=== PATIENT | female | born 1985 | race Caucasian/White ===

== ENCOUNTER 2018-09-15 06:30 | Day surgery (SDC) | payer OTHER ==
--- NOTE | 2018-09-13 17:22 | PDGENHP ---
History and Physical - Chief Complaint Missed AB, 6w3d by US - History of Present Illness Elsa is a 33 yo now who I met with in clinic on 09/07/18 at which time we unfortunately diagnosed missed AB. She was 9w2d by dates at that time, but US measurements show the fetus stopped growing at 6w3d. At that time she was not having any spotting or cramping at all. 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 At the time of her PE she was also found to have small VSD. She had started the Lovenox 60mg daily at office visit one week prior (08/29/18) at which time US had showed viable but low FHR at 84bpm - and plan was made for repeat US in 1 week. That first US did also have an abnormally enlarged yolk sac and the patient was counseled that this was all concerning for impending miscarriage. She has a h/o one TAB in 2001, then two first trimester SAB's in 2012 and 2014. In the office we discussed options, she preferred misoprostol and I Rx'd 800mcg to be taken buccally, with one refill such that she could repeat that dose after 24 hrs if the first dose had no effect. Indeed she took both the first and second doses of miso with really no cramping or bleeding. Called back to discuss next steps and we recommended D&C. She'd prefer Tuesday AM 09/15/18. This otherwise complicated by AMA, Depression, PCN allergy. Did not get routine labs done in the context of threatened AB. Son "Delmar" was born via in 2016 [place]. History Information - Allergies/Home Medication List Allergies/Adverse Reactions: Penicillins Allergy (Verified 04/01/16 05:04) I have personally reviewed and updated: family history, medical history, social history, surgical history - Past Medical History Additional medical history: "Small" VSD dx'd 2007 in the context of DVT on OCP' s that evolved to PE. Ultimately in the ICU, acutely anticoagulated, transitioned to Coumadin, then eventually off altogether (not chronically anticoagulated). Pos Factor V Leiden. Depression. Recurrent loss, AMA. - Surgical History Additional surgical history: TAB in 2002, in 2016, wisdom teeth - Family History Positive for: non-pertinent - Social History Smoking Status: Never smoked Alcohol Use: None Drug Use: None Review of Systems Review of Systems: ROS: 10pt was reviewed & negative except for what was stated in HPI & below Physical Exam Physical Exam: In the office the patient was in no distress, calm, pleasant. VS and Physical exam will be repeated on admission to L&D. Constitutional: no apparent distress Lab Data & Imaging Review Imaging Review: US 09/07/18 S<D 20 days GES SAC, AMNION, YOLK SAC SEEN SMALLER IN SIZE TODAY, AND EMBRYO SEEN BUT NO CARDIAC SEEN TODAY ON M MODE OR DOPPLER, ?MISSED AB RT OV 1.7 CM CLC LT OV WNL NO FF SEEN AUA 6W3D GA(LMP) 9W2D LMP 07/04/18 MELIZA(C) 04/10/19 MELIZA(AUA) 04/30/19 Assessment & Plan Assessment: 33 yo with IUFD at 6w3d, now s/p two doses of misoprostol with incomplete AB. - Routine preop orders placed. - Doxycycline 200mg IV, one hour prior to procedure per [facility]COG. - Consents will be signed by surgeon in PREOP. YOUSUF
[2018-09-15] MEDS ORDERED: LR 1,000 ML IV ONE (06:57)
[2018-09-15] MEDS ORDERED: NS IV ONE (06:57)
[2018-09-15] MEDS ORDERED: DOXYCYCLINE IV ONE (06:57)
--- NOTE | 2018-09-15 07:00 | PDANEPAE ---
ANE History of Present Illness missed AB ANE Past Medical History - Cardiovascular History Hx Hypertension: No Hx Arrhythmias: No Hx Chest Pain: No Hx Coronary Artery / Peripheral Vascular Disease: No Hx CHF / Valvular Disease: No Hx Palpitations: No Cardiovascular History Comment: vsd - Pulmonary History Hx COPD: No Hx Asthma/Reactive Airway Disease: No Hx Recent Upper Respiratory Infection: No Hx Oxygen in Use at Home: No Hx Sleep Apnea: No - Endocrine History Hx Diabetes: No Hypothyroid: No Hyperthyroid: No Obesity: no - Renal History Hx Renal Disorders: No - Liver History Hx Hepatic Disorders: No - Neurological & Psychiatric Hx Neurological / Psychiatric History Comment: depression - Cancer History Hx Cancer: No - Congenital Disorder History Hx Congenital Disorders: No - GI History GERD: no Hx Gastrointestinal Disorders: No - Other Health History Other Health History: factor V leiden-on lovenox. hx of DVT/PE - Chronic Pain History Chronic Pain: No ANE Review of Systems Review of systems is: negative Review of Systems: ANE Patient History - Allergies Allergies/Adverse Reactions: Penicillins Allergy (Verified 04/01/16 05:04) - Home Medications Home medications: home medication list seen and reviewed - NPO status NPO Status: no food or drink >8 hours - Anes Hx Anes Hx: no prior problems - Smoking Hx Smoking Status: Never smoked - Alcohol Use Alcohol Use: None - Family Anes Hx Family Anes Hx: none ANE Physical Exam - Airway Neck exam: FROM Mallampati Score: Class 2 Mouth exam: normal dental/mouth exam - Pulmonary Pulmonary: no respiratory distress, clear to auscultation - Cardiovascular Cardiovascular: regular rate and rhythym, no murmur, rub, or gallop - ASA Status ASA Status: II ANE Anesthesia Plan Anesthesia Plan: GA w LMA, GA with mask
[2018-09-15] MEDS ORDERED: LIDOCAINE 2% 2 ML INJ ONE ×2 (07:10)
[2018-09-15] MEDS ORDERED: PROPOFOL/EMULSION 500 MG/50 ML BOTTLE IV ONE ×2 (07:10→08:09)
[2018-09-15] MEDS ORDERED: fentaNYL 100 MCG/2 ML INJ ONE (07:10)
[2018-09-15] MEDS ORDERED: NALOXONE HCL 0.4 MG/ML INJ IVP PRN (08:30)
[2018-09-15] MEDS ORDERED: IBUPROFEN 600 MG TAB PO PRN (08:30)
--- NOTE | 2018-09-15 08:30 | POSTOPPROG ---
Post Op Note Date of Operation: 09/15/18 Surgeon: Megan Galvez Anesthesiologist: Dr. Rosario Anesthesia: GET(General Endotracheal), IV Sedation Pre-op Diagnosis: MAB @ 9 weeks by dates, 6 week size Post-op Diagnosis: same Procedure: suction D and C Inf/Abcess present in the surg proc area at time of surgery?: No Depth: Organ Space EBL: Minimal Total fluids administered: 1000 Complications: none Specimen(s): products of conception
--- NOTE | 2018-09-15 08:30 | POSTANESTH ---
Post Anesthetic Evaluation Cardiovascular Status: Normal, Stable Respiratory Status: Normal, Stable Level of Consciousness/Mental Status: Can Participate in Eval Pain Control: Adequate, Prn Tx Ordered Nausea/Vomiting Control: Adequate, Prn Tx Ordered Complications Possibly Related to Anesthesia: None Noted
[2018-09-15] MEDS ORDERED: oxyCODONE IR 5 MG TAB PO PRN (08:31)
--- NOTE | 2018-09-15 09:31 | GOP ---
[f rep st] OPERATIVE REPORT DATE OF OPERATION: 09/15/2018 SURGEON: Megan Galvez MD ANESTHESIA: IV sedation/general anesthesia without intubation. ANESTHESIOLOGIST: Dr. Rosario. PREOPERATIVE DIAGNOSIS: Missed . She is 9 weeks by dates, 6 weeks by size. POSTOPERATIVE DIAGNOSIS: Missed . She is 9 weeks by dates, 6 weeks by size. PROCEDURE PERFORMED: Suction dilation and curettage with ultrasound guidance. FINDINGS: SPECIMENS: Products of conception. ESTIMATED BLOOD LOSS: Minimal, less than 10 cc. INDICATIONS: The patient is a 33-year-old 5, para 1-0-3-1, who was diagnosed with a missed a bortion on 09/07/2018. She had originally presented a week prior for a viability ultrasound on 08/29. At that time, the ultrasound demonstrated a fetus with an enlarged yolk sac and heart t ones of 84. Patient was given instructions to follow up in 1 week and at that 1-week ultrasound, the fetus had stopped growing, was 6 weeks 3 days, and had no heart tones. Diagnosis of missed ab ortion was made. Patient was given treatment options. Initially, she took misoprostol 800 mcg bucca lly, with repeat 24 hours. She had no effect, minimal cramping or bleeding. At the followup visit, we reviewed options again to repeat the medication versus surgical management, and patient opted to n ow proceed with suction dilation and curettage. She was consented for the procedure. She understood the risks and benefits, the risks including bleeding, infection, damage to the uterus including poss ible risk of perforation, damage to other organs if perforation were to occur, incomplete removal of the tissue with spontaneous expulsion and/or need for repeat procedure, and compromise of future fert ility. She understood these risks and benefits and agreed to proceed. DESCRIPTION OF PROCEDURE: Patient was taken to the operating room, where she was given IV sedation w ith monitoring. She was prepped and draped in the dorsal lithotomy position. After a WHO time-out w as performed, an open-sided speculum was placed in the vagina and a Mario tenaculum was used to gras p the anterior lip of the cervix. The uterus sounded to approximately 9 cm. The cervix was progress ively dilated with Ornelas dilators to a #9. The #9 curved suction curette was then gently advanced fr om the cervix to the fundus. Suction was applied and tissue was obtained with several passages of th e suction device. Sharp curettage was then performed in a clockwise fashion until a gritty texture w as palpated throughout the entire endometrium. Final passage of the suction device revealed minimal bleeding and no further tissue. The tenaculum was removed as well as the speculum. A transvaginal u ltrasound was performed and we visualized a thin endometrial stripe from the cervix to the fundus, wi th no further visualized products of conception and minimal blood. The patient tolerated the procedu re well. Sponge, lap, needle, and instrument counts were correct x3. Patient went to the recovery r oom in good condition. FLUID REPLACEMENT: 1000 cc. URINE OUTPUT: Not measured. /[id number]/MODL
[2018-09-15 09:49] VITALS: BP 100/76
== END 2018-09-15 10:44 | disposition home or self-care (01) ==
LOC: FSGY 06:30 → FOBOP 10:44
PROVIDERS: ATTEND Obstetrics & Gynecology
PROC: 10D17ZZ Extraction of Products of Conception, Retained, Via Natural or Artificial Opening (ICD-10-PCS; principal; 2018-09-15)
DX: O02.1 Missed abortion (principal); F32.9 Major depressive disorder, single episode, unspecified; D68.51 Activated protein C resistance; N96 Recurrent pregnancy loss; Z86.73 Personal history of transient ischemic attack (TIA), and cerebral infarction without residual deficits; Z88.0 Allergy status to penicillin
CPT/HCPCS: J2704; J3010